=== PATIENT | female | born 1985 ===

== ENCOUNTER 2017-02-04 04:33 | Emergency (ER) | payer BC ==
[2017-02-04] MEDS ORDERED: methylPREDNISolone 125 MG* 2 ML VIAL IV ONE (04:51)
[2017-02-04] MEDS ORDERED: Albuterol 2.5 MG/3 ML NEB.SOL* (0.083%) INH ONE (04:51)
[2017-02-04] MEDS ORDERED: NS 0.9% 1000 ML* 1,000 ML IV ONE (04:51)
[2017-02-04] MEDS ORDERED: Albuterol/Ipratropium NEB.SOL* Albuterol 2.5 MG/Ipratropium 0.5 MG 3 ML INH ONE (04:51)
[2017-02-04] MEDS ORDERED: guaiFENesin/CODIEN 100MG-10MG* 5 ML UDC PO ONE (04:51)
[2017-02-04] MEDS ORDERED: Ketorolac INJ* 30 MG/ML 1 ML VIAL IV PUSH ONE (04:55)
[2017-02-04] MEDS ORDERED: Levofloxacin 750 MG IVPREMIX(* 750 MG/150 ML BAG IVPB ONE (04:55)
[2017-02-04 05:24] LABS: Hematocrit 42 % (35-47); Hemoglobin 14.4 g/dl (12.0-16.0); Mean Corpuscular HGB Conc 34 g/dl (31-36); Mean Corpuscular Hemoglobin 29 pg (27-31); Mean Corpuscular Volume 85 fL (80-97); Mean Platelet Volume 10 um3 (7.4-10.4); Red Blood Count 4.97 10^6/ul (4.0-5.4); Red Cell Distribution Width 13 % (10.5-15); White Blood Count 9.6 10^3/ul (3.5-10.8)
[2017-02-04 05:40] LABS: ALT 15 U/L (7-52); AST 14 U/L (13-39); Albumin 4.3 g/dL (3.2-5.2); Alkaline Phosphatase 65 U/L (34-104); Anion Gap 7 mmol/L (2-11); BUN/Creatinine Ratio 19.8 (8-20); Blood Urea Nitrogen 21 mg/dL (6-24); C Reactive Protein 34.73 mg/L (< 5.00); CO2 Carbon Dioxide 22 mmol/L (22-32); Calcium 8.9 mg/dL (8.6-10.3); Chloride 104 mmol/L (101-111); EGFR African American 77.3 (>60); EGFR Non-African American 60.1 (>60); Globulin 3.3 g/dL (2-4); Glucose 107 mg/dL (70-100); Potassium 3.7 mmol/L (3.5-5.0); Sodium 133 mmol/L (133-145); Total Protein 7.6 g/dL (6.4-8.9)
[2017-02-04] MEDS ORDERED: Iohexol 350* (CONTRAST) 500 ML MDV IV ONE (06:03)
[2017-02-04] MEDS ORDERED: Albuterol HFA INHALER* 8 gm MDI INH PRN (06:47)
[2017-02-04] MEDS ORDERED: Albuterol HFA INHALER* 8 gm MDI INH ONE (06:53)
--- NOTE | 2017-02-04 06:56 | ED ---
Jerad Bacon Jason, scribed for Esmer Potter MD on 02/04/17 at 0456 . Respiratory - HPI Summary HPI Summary: This patient is a 31 year old F presenting to [facility] with a chief complaint of cough and cold sx since 1 week ago. The patient states she cant take deep breaths and feels like Im choking Additionally, she includes that she had a productive cough with thick mucus, but the mucus is now thing and making her choke. Patient is taking Mucinex and the cough suppressant Expectorant. The patient rates the pain 0/10 in severity. Symptoms aggravated by nothing. Symptoms alleviated by nothing. Patient reports sinus congestion. Patient denies fever. - History of Current Complaint Chief Complaint: EDUpperRespComplaint Stated Complaint: COUGH/DIFF BREATHING Time Seen by Provider: 02/04/17 04:46 Hx Obtained From: Patient Onset/Duration: Gradual Onset - 1 week ago Timing: Constant Pain Intensity: 0 Character: Cough (Productive) Aggravating Factor(s): Nothing Alleviating Factor(s): Nothing Associated Signs and Symptoms: Negative - fever, Nasal Congestion, Dyspnea - Allergy/Home Medications Allergies/Adverse Reactions: Allergies Allergy/AdvReac Type Severity Reaction Status Date / Time No Known Allergies Allergy Verified 02/04/17 04:42 PMH/Surg Hx/FS Hx/Imm Hx Previously Healthy: Yes Endocrine/Hematology History: Denies: Hx Diabetes, Hx Thyroid Disease Cardiovascular History: Denies: Hx Hypertension Respiratory History: Denies: Hx Asthma, Hx Chronic Obstructive Pulmonary Disease (COPD) GI History: Denies: Hx Ulcer Infectious Disease History: No Infectious Disease History: Denies: Hx Hepatitis, Hx Human Immunodeficiency Virus (HIV), History Other Infectious Disease, Traveled Outside the [place] in Last 30 Days - Family History Known Family History: Negative: Renal Disease, Blood Disorder - Social History Occupation: Student Lives: Alone Alcohol Use: Rare Substance Use Type: Reports: None Smoking Status (MU): Never Smoked Tobacco Review of Systems Negative: Fever Positive: Other - sinus congestion Positive: Cough - productive, Other - dyspnea All Other Systems Reviewed And Are Negative: Yes Physical Exam - Summary Physical Exam Summary: VITAL SIGNS: Reviewed. GENERAL: ~Patient is a well-developed and nourished (MALE OR FEMALE) who is lying comfortable in the stretcher. Patient is not in any acute respiratory distress. HEAD AND FACE: No signs of trauma. No ecchymosis, hematomas or skull depressions. No sinus tenderness. EYES: PERRLA, EOMI x 2, No injected conjunctiva, no nystagmus. EARS: Hearing grossly intact. Ear canals and tympanic membranes are within normal limits. MOUTH: Oropharynx within normal limits. NECK: Supple, trachea is midline, no adenopathy, no JVD, no carotid bruit, no c- spine tenderness, neck with full ROM. CHEST: Symmetric, no tenderness at palpation LUNGS: Coughing during exam. Mild end-expiratory wheezes bilaterally. CVS: Regular rate and rhythm, S1 and S2 present, no murmurs or gallops appreciated. ABDOMEN: Soft, non-tender. No signs of distention. No rebound no guarding, and no masses palpated. Bowel sounds are normal. EXTREMITIES: FROM in all major joints, no edema, no cyanosis or clubbing. NEURO: Alert and oriented x 3. No acute neurological deficits. Speech is normal and follows commands. SKIN: Dry and warm Triage Information Reviewed: Yes Vital Signs On Initial Exam: Initial Vitals Temp Pulse Resp BP Pulse Ox 97.8 F 100 18 148/99 100 02/04/17 04:39 02/04/17 04:39 02/04/17 04:39 02/04/17 04:39 02/04/17 04:39 Vital Signs Reviewed: Yes Diagnostics - Vital Signs Vital Signs Temp Pulse Resp BP Pulse Ox 02/04/17 04:39 97.8 F 100 18 148/99 100 - Laboratory Result Diagrams: 02/04/17 05:15 02/04/17 05:15 Lab Statement: Any lab studies that have been ordered have been reviewed, and results considered in the medical decision making process. - Radiology CXR Radiology Interpretation Completed By: ED Physician - no acute processes - CT Chest CT Interpretation Completed By: Radiologist - multiple tiny bilateral nodules could be secondary to infection such as varicella pneumonia although metastases are also considered. Suboptimal opacification of the pulmonary arteries. ED physician has reviewed this radiology report and agrees. Disposition - Course Course Of Treatment: This patient is a 31 year old F presenting to [facility] with a chief complaint of cough and cold sx since 1 week ago. The patient states she cant take deep breaths and feels like Im choking Additionally, she includes that she had a productive cough with thick mucus, but the mucus is now thing and making her choke. Patient is taking Mucinex and the cough suppressant Expectorant. The patient rates the pain 0/10 in severity. Symptoms aggravated by nothing. Symptoms alleviated by nothing. Patient reports sinus congestion. Patient denies fever. Assessment/Plan: In the ED course the patient was given albuterol and IV fluids. CXR reveals no acute processes. Influenza A and B test results are negative. CTA Chest reveals multiple tiny bilateral nodules could be secondary to infection such as varicella pneumonia although metastases are also considered. Suboptimal opacification of the pulmonary arteries. We reviewed CT scan results in detail and have recommended follow up with PCP within next week. Additionally, the patient was advised to repeat a CT scan, which will be determined by her PCP during the follow up. Patient will be discharged with prescription for Prednisone and Levaquin. The patient is agreeable with this plan. - Diagnoses Provider Diagnoses: Acute bronchitis Discharge - Discharge Plan Condition: Stable Disposition: HOME Patient Education Materials: Acute Bronchitis (ED) Referrals: No Primary Care Phys,NOPCP [Primary Care Provider] - Additional Instructions: We recommend a repeat of a CT Chest scan within the next week, which will be determined by your PCP during the follow up. RETURN TO THE EMERGENCY DEPARTMENT FOR CHANGING OR WORSENING SYMPTOMS. The documentation as recorded by the Jerad li Jason accurately reflects the service I personally performed and the decisions made by , Esmer Potter MD.
[2017-02-04 07:06] VITALS: BP 107/75
--- NOTE | 2017-02-04 07:58 | RAD ---
Indication: Cough for 2 weeks. Trouble taking deep breaths. Shortness of breath. Comparison: August 16, [address] Technique: Upright AP 0505 hours Report: Clear lungs and pleural spaces. Negative for pneumothorax. The heart, pulmonary vasculature, and mediastinal contours are unremarkable. Unremarkable osseous structures and soft tissue contours. IMPRESSION: No evidence for acute intrathoracic disease.
--- NOTE | 2017-02-04 08:15 | RAD ---
HISTORY: Cough, difficulty breathing, elevated d-dimer COMPARISONS: None TECHNIQUE: Multiple contiguous axial CT scans of the chest were obtained after the administration of nonionic intravenous contrast, timed to the pulmonary arterial phase of contrast enhancement.. Coronal and sagittal multiplanar reformations are also submitted for review. FINDINGS: Evaluation is limited by suboptimal contrast opacification. Attenuation of the main pulmonary artery is less than 200 Hounsfield units, which is nondiagnostic for the detection of pulmonary embolism. NECK AND THYROID: The lower neck and thyroid are unremarkable. CHEST WALL: There is no lower cervical, axillary, or supraclavicular lymphadenopathy by size criteria. HEART AND PERICARDIUM: The heart is unremarkable. AORTA AND PULMONARY VASCULATURE: Evaluation is limited due to suboptimal contrast opacification, which is nondiagnostic for the detection of pulmonary embolism. There is no obvious large or proximal pulmonary arterial filling defect. The aorta is unremarkable. MEDIASTINUM: There is no mediastinal lymphadenopathy by size criteria. HUSSAIN: There is no hilar lymphadenopathy by size criteria. AIRWAY AND ESOPHAGUS: The airway is unremarkable, without endobronchial filling defect. The esophagus is grossly normal. LUNG PARENCHYMA: There are innumerable randomly pulmonary parenchymal nodules throughout both lungs measuring up to 0.5 cm in size. PLEURA: No pleural abnormalities are noted. UPPER ABDOMEN: The upper abdomen is unremarkable. BONES AND SOFT TISSUES: No bone or soft tissue abnormalities are noted. OTHER: None. IMPRESSION: 1. EVALUATION IS LIMITED DUE TO SUBOPTIMAL CONTRAST OPACIFICATION. THE ATTENUATION OF THE MAIN PULMONARY ARTERY IS NONDIAGNOSTIC FOR THE DETECTION OF PULMONARY EMBOLISM. THERE IS NO OBVIOUS LARGE OR PROXIMAL PULMONARY ARTERIAL FILLING DEFECT. 2. INNUMERABLE PULMONARY PARENCHYMAL NODULES IN BOTH LUNGS BILATERALLY, MEASURING UP TO 0.5 CM. THE DIFFERENTIAL INCLUDES INFECTIOUS OR NEOPLASTIC PARENCHYMAL NODULES. THE RECOMMENDATIONS FOR FOLLOWUP AND MANAGEMENT OF INCIDENTALLY DETECTED MULTIPLE PULMONARY NODULES LESS THAN 6 MM IN SIZE, IN A PATIENT WITHOUT A HISTORY OF MALIGNANCY, INCLUDE NO FOLLOWUP FOR A LOW-RISK PATIENT OR OPTIONAL FOLLOWUP CT IN 12 MONTHS FOR A HIGH RISK PATIENT. NOTES: SIZE = AVERAGE LENGTH AND WIDTH; HIGH RISK IS DEFINED A HISTORY OF SMOKING OR OTHER KNOW RISK FACTORS FOR LUNG CANCER; LOW RISK IS DEFINED MINIMAL OR ABSENT HISTORY OF SMOKING OR OTHER KNOWN RISK FACTORS. Shahab Prince, ALONSO Tipton, MADDIE Ascencio, et al (2017) "Guidelines for Management of Incidental Pulmonary Nodules Detected on CT Images: From the Fleischner Society 2017." Radiology; 284(1): 228-243. doi:10.1148/radiol.[id number]
== END 2017-02-04 07:06 | disposition home or self-care (01) ==
LOC: ED 04:33
DX: J20.9 Acute bronchitis, unspecified (principal); R05 Cough; R06.00 Dyspnea, unspecified
CPT/HCPCS: 36415; 71010; 71275; 80053; 84702; 85025; 85379; 86140; 87502; 96374; 99283; A9270-GY; J1885; J2930; Q9967

== ENCOUNTER 2018-01-25 14:04 | Emergency (ER) | payer SELFPAY ==
[2018-01-25 15:31] VITALS: BP 120/67
--- NOTE | 2018-01-25 16:11 | ED ---
Throat Pain/Nasal Congestion - HPI Summary HPI Summary: Ms. Rushing injured herself a little bit when she tried to clean her left ear with a curet a couple days ago. She has seen a little bit of blood. Right now she is complaining mostly of some irritation and points behind her ear. She denies any earache and she denies dizziness although she said she lost her balance a couple of times. - History of Current Complaint Chief Complaint: UCEar Time Seen by Provider: 01/25/18 15:53 Hx Obtained From: Patient Onset/Duration: Sudden Onset Severity: Mild Associated Signs And Symptoms: Positive: Negative - Allergies/Home Medications Allergies/Adverse Reactions: Allergies Allergy/AdvReac Type Severity Reaction Status Date / Time No Known Allergies Allergy Verified 01/25/18 15:31 Home Medications: Home Medications Escitalopram Oxalate [Lexapro 10 mg] 10 mg PO DAILY 01/25/18 [History Confirmed 01/25/18] PMH/Surg Hx/FS Hx/Imm Hx Previously Healthy: Yes Endocrine/Hematology History: Denies: Hx Diabetes, Hx Thyroid Disease Cardiovascular History: Denies: Hx Hypertension Respiratory History: Denies: Hx Asthma, Hx Chronic Obstructive Pulmonary Disease (COPD) GI History: Denies: Hx Ulcer History: Denies: Hx Renal Disease - Surgical History Surgery Procedure, Year, and Place: denies Infectious Disease History: No Infectious Disease History: Denies: Hx Hepatitis, Hx Human Immunodeficiency Virus (HIV), History Other Infectious Disease, Traveled Outside the [place] in Last 30 Days - Family History Known Family History: Negative: Renal Disease, Blood Disorder - Social History Alcohol Use: Occasionally Substance Use Type: Reports: None Smoking Status (MU): Former Smoker Review of Systems ENT: Negative Respiratory: Negative Gastrointestinal: Negative Skin: Negative Neurological: Negative Psychological: Normal All Other Systems Reviewed And Are Negative: No Physical Exam - Summary Physical Exam Summary: She is nontoxic in appearance and her vital signs are stable. Triage Information Reviewed: Yes Vital Signs On Initial Exam: Initial Vitals Temp Pulse Resp BP Pulse Ox 98.1 F 80 18 120/67 100 01/25/18 15:27 01/25/18 15:27 01/25/18 15:27 01/25/18 15:27 01/25/18 15:27 Vital Signs Reviewed: Yes Appearance: Positive: Well-Appearing, No Pain Distress Skin: Positive: Warm, Skin Color Reflects Adequate Perfusion, Dry - Her TM is clear and not bulging. He external canal is slightly swollen and has an abrasion at nine o'clock [address] She has a little tragal tenderness. Dental: Negative: Cervical Lymphadenopathy Neck: Positive: Supple, Nontender, No Lymphadenopathy Respiratory/Lung Sounds: Positive: Clear to Auscultation Cardiovascular: Positive: Normal Diagnostics - Vital Signs Vital Signs Temp Pulse Resp BP Pulse Ox 01/25/18 15:27 98.1 F 80 18 120/67 100 - Laboratory Lab Statement: Any lab studies that have been ordered have been reviewed, and results considered in the medical decision making process. EENT Course/Dx - Course Course Of Treatment: This is a superficial injury and I will treat with Cortisporin. - Diagnoses Provider Diagnoses: Otitis externa Discharge - Sign-Out/Discharge Documenting (check all that apply): Patient Departure All imaging exams completed and their final reports reviewed: Yes - Discharge Plan Condition: Stable Disposition: HOME Prescriptions: Neomyc/Polym/HC 1% OTIC SUSP* [Cortisporin Otic Susp 1%*] 2 - 4 drop LEFT EAR QID #1 btl Patient Education Materials: Otitis Externa (ED) Referrals: No Primary Care Phys,NOPCP [Primary Care Provider] - Additional Instructions: Please follow up here if not improved in 2-3 days. - Billing Disposition and Condition Condition: STABLE Disposition: Home
== END 2018-01-25 16:06 | disposition home or self-care (01) ==
LOC: UCEAST 14:04
DX: H60.92 Unspecified otitis externa, left ear (principal); Z87.891 Personal history of nicotine dependence
CPT/HCPCS: 99212; G0463